=== PATIENT | male | born 1995 | race Caucasian/White ===

== ENCOUNTER 2023-12-19 15:55 | Emergency (ER) | payer OTHER ==
[2023-12-19 16:06] VITALS: BP 132/90; PULSE 98; RESP 18; TEMP 97; BMI 25.7
[2023-12-19] MEDS: ACETAMINOPHEN 500 MG TABLET (FP) PO ONE (17:09)
[2023-12-19] MEDS ORDERED: ACETAMINOPHEN 500 MG TABLET (FP) ONE (17:11)
== END 2023-12-19 18:15 | disposition home or self-care (01) ==
LOC: JERFT 15:55
DX: S46.911A Strain of unspecified muscle, fascia and tendon at shoulder and upper arm level, right arm, initial encounter (principal); M25.511 Pain in right shoulder; V43.62XA Car passenger injured in collision with other type car in traffic accident, initial encounter; Y92.410 Unspecified street and highway as the place of occurrence of the external cause
CPT/HCPCS: 73030-TC-RT-FY; 99283-25